=== PATIENT | female | born 1975 | race American Indian/Alaskan Native ===

== ENCOUNTER 2017-07-19 20:46 | Emergency (ER) | payer BC, MEDICARE ==
[2017-07-19] MEDS ORDERED: NACL 0.9% 1000 ML 1,000 ML IV ONE (21:48)
--- NOTE | 2017-07-19 21:55 | Emergency Department Report ---
History of Present Illness - General Stated Complaint: SUICIDAL Time Seen by Provider: 07/19/17 21:43 Source: patient, EMS Mode of arrival: Stretcher Limitations: No Limitations - History of Present Illness Initial Comments: Patient is 42 years old female history of depression, diabetes, hypertension and asthma. Patient presented with EMS for possible drug overdose. Patient friend called EMS stating that patient took extra amount of drugs. Patient stated that she took a handful of Prozac 40 mg and clonazepam 1 mg. This is happened 4 hours prior to ER arrival. When I looked at the empty bottles that EMS brought with the patient, it did show that Prozac is empty, it was filled on June and it was 30 tablets. The other empty bottle is clonazepam which was filled in 2015 and it's completely empty. When I questioned the patient about why did she do that she stated that she does not want to talk about it MD Complaint: intentional overdose -: Sudden Intent: suicide attempt How Overdose Was Discovered: family/friend present Context: Intentional Overdose: other (patient does not want to talk about it.) Associated Symptoms: depression Treatments Prior to Arrival: oxygen - Related Data Home Medications Medication Instructions Recorded Confirmed Last Taken Mometasone/Formoterol [Dulera 200 05/08/16 05/08/16 Mcg/5 Mcg Inhaler] Valtrex 1 gram PO DAILY 05/08/16 05/08/16 05/08/16 clonazePAM [Klonopin] 1 mg PO TID 05/08/16 05/08/16 05/07/16 metFORMIN [Glucophage] 500 mg PO TID 05/08/16 05/08/16 05/08/16 Previous Rx's Medication Instructions Recorded Last Taken Type Prednisone [predniSONE 10 mg 10 mg PO .TAPER #1 tab.ds.pk 05/08/16 Unknown Rx (6-Day Pack, 21 Tabs)] Allergies Allergy/AdvReac Type Severity Reaction Status Date / Time Latex, Natural Rubber Allergy Rash Verified 08/13/15 17:03 ED Review of Systems ROS: Stated complaint: SUICIDAL Other details as noted in HPI Comment: All other systems reviewed and negative Constitutional: denies: chills, fever ENT: denies: ear pain, throat pain, dental pain, hearing loss Respiratory: denies: cough, orthopnea, shortness of breath, SOB with exertion Cardiovascular: denies: chest pain, palpitations, dyspnea on exertion, orthopnea , edema, syncope, paroxysmal nocturnal dyspnea Gastrointestinal: denies: abdominal pain, nausea, vomiting, diarrhea, constipation, hematemesis, melena, hematochezia Genitourinary: denies: urgency, dysuria, frequency Musculoskeletal: denies: back pain, joint swelling Skin: denies: rash, lesions, change in color Neurological: denies: headache, weakness, numbness, paresthesias, confusion Psychiatric: depression, suicidal thoughts ED Past Medical Hx - Past Medical History Hx Hypertension: Yes Hx Diabetes: Yes Hx Asthma: Yes - Surgical History Hx Breast Surgery: Yes Additional Surgical History: breast reduction 2010 - Social History Smoking Status: Never Smoker Substance Use Type: Prescribed - Medications Home Medications: Home Medications Medication Instructions Recorded Confirmed Last Taken Type Mometasone/Formoterol [Dulera 200 05/08/16 05/08/16 History Mcg/5 Mcg Inhaler] Prednisone [predniSONE 10 mg 10 mg PO .TAPER #1 tab.ds.pk 05/08/16 Unknown Rx (6-Day Pack, 21 Tabs)] Valtrex 1 gram PO DAILY 05/08/16 05/08/16 05/08/16 History clonazePAM [Klonopin] 1 mg PO TID 05/08/16 05/08/16 05/07/16 History metFORMIN [Glucophage] 500 mg PO TID 05/08/16 05/08/16 05/08/16 History ED Physical Exam - General Limitations: No Limitations General appearance: alert, in no apparent distress - Head Head exam: Present: atraumatic, normocephalic, normal inspection - Eye Eye exam: Present: normal appearance, PERRL Pupils: Present: normal accommodation - ENT ENT exam: Present: normal exam, normal orophraynx, mucous membranes moist - Neck Neck exam: Present: normal inspection, full ROM. Absent: tenderness, meningismus, lymphadenopathy, thyromegaly - Respiratory Respiratory exam: Present: normal lung sounds bilaterally. Absent: respiratory distress, wheezes, rales, rhonchi, stridor, chest wall tenderness, accessory muscle use, decreased breath sounds, prolonged expiratory - Cardiovascular Cardiovascular Exam: Present: regular rate, normal rhythm, normal heart sounds - GI/Abdominal GI/Abdominal exam: Present: soft, normal bowel sounds. Absent: distended, tenderness, guarding, rebound, rigid, organomegaly, mass, bruit, pulsatile mass , hernia - Extremities Exam Extremities exam: Present: normal inspection, full ROM, normal capillary refill. Absent: tenderness, pedal edema, joint swelling, calf tenderness - Back Exam Back exam: Present: normal inspection, full ROM. Absent: CVA tenderness (R), CVA tenderness (L), muscle spasm, paraspinal tenderness, vertebral tenderness - Neurological Exam Neurological exam: Present: alert, oriented X3, CN II-XII intact, normal gait. Absent: abnormal gait, motor sensory deficit, reflexes normal - Skin Skin exam: Present: warm, intact, normal color. Absent: cyanosis, diaphoretic ED Course Vital Signs 07/19/17 07/19/17 07/19/17 21:41 21:45 21:51 Temperature 98.7 F Pulse Rate 95 H 94 H Respiratory 11 L 13 Rate Blood Pressure 119/68 119/68 O2 Sat by Pulse 100 100 99 Oximetry 07/19/17 07/19/17 07/19/17 22:00 22:15 22:30 Temperature Pulse Rate 94 H 96 H Respiratory 14 29 H 15 Rate Blood Pressure 117/71 117/71 125/73 O2 Sat by Pulse 100 100 100 Oximetry 07/19/17 07/19/17 22:45 23:45 Temperature Pulse Rate Respiratory 18 18 Rate Blood Pressure 117/71 O2 Sat by Pulse 98 Oximetry - Reevaluation(s) Reevaluation #1: 07/19/17 23:21 patient is alert and oriented x3, she is talking on the phone in no acute distress. Reevaluation #2: 07/20/17 04:36 Patient is alert oriented 3, plan was however I found in no acute distress. Patient is already being seen by psychiatric team and wrote him on referring her for inpatient stabilization. 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 ED Medical Decision Making - Lab Data Result diagrams: 07/19/17 21:53 07/19/17 21:53 Critical care attestation.: If time is entered above; I have spent that time in minutes in the direct care of this critically ill patient, excluding procedure time. ED Disposition Clinical Impression: Drug overdose, multiple drugs, Suicidal overdose Disposition: [id number]/TX-[id number] PSY HOSP/PSY UNIT Is pt being admited?: No Condition: Stable Referrals: JULIUS REDDY MD [Primary Care Provider] - 3-5 Days
[2017-07-19 22:06] LABS: Basophils % (Auto) 0.3 % (0.0-1.8); Eosinophils # (Auto) 0.1 K/mm3 (0.0-0.4); Eosinophils % (Auto) 0.7 % (0.0-4.3); Hemoglobin 12.4 gm/dl (10.1-14.3); Lymphocytes # (Auto) 2.9 K/mm3 (1.2-5.4); Lymphocytes % (Auto) 26.4 % (13.4-35.0); Monocytes # (Auto) 0.7 K/mm3 (0.0-0.8); Monocytes % (Auto) 5.9 % (0.0-7.3)
[2017-07-19 22:12] LABS: Hematocrit 36.7 % (30.3-42.9); Mean Corpuscular HGB Conc 34 % (30-34); Mean Corpuscular Hemoglobin 31 pg (28-32); Mean Corpuscular Volume 92 fl (79-97); Platelet Count 256 K/mm3 (140-440); Red Cell Distribution Width 13.8 % (13.2-15.2)
[2017-07-19 22:28] LABS: Alanine Aminotransferase 13 units/L (7-56); Albumin 3.8 g/dL (3.9-5); BUN/Creatinine Ratio 12; Blood Urea Nitrogen 7 mg/dL (7-17); Calcium 8.6 mg/dL (8.4-10.2); Hemolysis Index 2
[2017-07-20 06:03] LABS: Bilirubin,Urine NEG (Negative); Blood,Urine NEG (Negative); Color,Urine Yellow (Yellow); Hyaline Casts,Urine 1 /LPF; Mucus,Urine 2+ /HPF; Nitrite,Urine NEG (Negative); Protein,Urine <15 mg/dL mg/dL (Negative); Urobilinogen,Urine < 2.0 mg/dL (<2.0)
[2017-07-20 06:09] LABS: Amphetamine Screen,Urine PRESUMPTIVE NEGATIVE; Benzodiazepines Screen,Urine PRESUMPTIVE NEGATIVE; Cannabinoid Screen,Urine PRESUMPTIVE NEGATIVE; Cocaine Screen,Urine PRESUMPTIVE NEGATIVE; Methadone Screen,Urine PRESUMPTIVE NEGATIVE; Opiate Screen,Urine PRESUMPTIVE NEGATIVE
[2017-07-20 10:47] VITALS: BP 142/93
== END 2017-07-20 11:03 ==
LOC: ED 20:46
DX: T43.222A Poisoning by selective serotonin reuptake inhibitors, intentional self-harm, initial encounter (principal); T42.4X2A Poisoning by benzodiazepines, intentional self-harm, initial encounter; I10 Essential (primary) hypertension; E11.9 Type 2 diabetes mellitus without complications; J45.909 Unspecified asthma, uncomplicated; Z91.040 Latex allergy status
CPT/HCPCS: 36415; 80053; 80307; 81001; 84703; 85025; 93005; 93010; 96360; 99285; G0480; J7030; 80320